=== PATIENT | female | born 1960 | race Caucasian/White ===

== ENCOUNTER 2019-07-21 08:56 | Day surgery (SDC) | payer OTHER ==
[~2019-07-21] VITALS: Ht 160 cm; Wt 87.1 kg
[2019-07-21] MEDS ORDERED: fentaNYL 0.05 MG/ML VIAL ONE (09:50)
[2019-07-21] MEDS ORDERED: LIDOCAINE 2% 100 MG/5 ML UJET TP ONE (09:50)
== END 2019-07-21 12:05 | disposition home or self-care (01) ==
LOC: MDS 08:56 → MMU 09:05 → MDS 12:05
PROVIDERS: ATTEND Internal Medicine Gastroenterology
DX: K52.9 Noninfective gastroenteritis and colitis, unspecified (principal); D12.0 Benign neoplasm of cecum; I10 Essential (primary) hypertension; E78.00 Pure hypercholesterolemia, unspecified; Z79.82 Long term (current) use of aspirin; Z79.899 Other long term (current) drug therapy; Z98.890 Other specified postprocedural states
CPT/HCPCS: 45380; 45385; 88305; J3010; J7030

== ENCOUNTER 2022-12-21 11:46 | Day surgery (SDC) | payer OTHER ==
[~2022-12-21] VITALS: Ht 160 cm; Wt 81.6 kg
[2022-12-21 12:22] LABS: BASOPHILS % (AUTO) 0.6 % (0.0-2.0); EOSINOPHILS # (AUTO) 0.1 K/uL (0-0.4); EOSINOPHILS % (AUTO) 1.3 % (0.0-4.0); HEMATOCRIT 37.6 % (36-48); HEMOGLOBIN 12.7 g/dL (12.0-16.0); LYMPHOCYTES # (AUTO) 2.3 K/uL (2.5-16.5); MEAN CORPUSCULAR HEMOGLOBIN 31 pg (27-31); MEAN CORPUSCULAR HGB CONC 34 g/dL (33-37); MEAN CORPUSCULAR VOLUME 91.3 fL (80-94); MONOCYTES # (AUTO) 0.8 K/uL (0.8-1.0); MONOCYTES % (AUTO) 10.7 % (1.7-9.3); NEUTROPHILS # (AUTO) 4.4 K/uL (1.8-7.7); NEUTROPHILS % (AUTO) 57.4 % (42.2-75.2); PLATELET COUNT (AUTO) 166 K/uL (140-450); RED BLOOD CELL COUNT(AUTO) 4.12 MIL/uL (4.20-5.40); RED CELL DISTRIBUTION WIDTH 14.1 % (11.6-13.7); WHITE BLOOD COUNT (AUTO) 7.7 K/uL (4.8-10.8)
[2022-12-21 12:42] LABS: INR 1.14 (0.8-1.2); PARTIAL THROMBOPLASTIN TIME 28.5 secs (22-35.6); PROTHROMBIN TIME 11.9 secs (10.8-13.4)
[2022-12-21] MEDS ORDERED: LIDOCAINE 1% 500 MG/50 ML VIAL ONE (14:06)
[2022-12-21] MEDS ORDERED: fentaNYL citrate 0.05 MG/ML VIAL ONE (14:16)
[2022-12-21] MEDS ORDERED: fentaNYL citrate 0.05 MG/ML VIAL IVP ONE (15:00)
== END 2022-12-21 15:30 | disposition home or self-care (01) ==
LOC: MDS 11:46 → MMU 11:48 → MDS 15:30
PROVIDERS: ATTEND Internal Medicine Gastroenterology
DX: R74.01 Elevation of levels of liver transaminase levels (principal); K76.0 Fatty (change of) liver, not elsewhere classified; K21.9 Gastro-esophageal reflux disease without esophagitis; I10 Essential (primary) hypertension; E66.09 Other obesity due to excess calories; K59.00 Constipation, unspecified; Z80.0 Family history of malignant neoplasm of digestive organs; Z90.49 Acquired absence of other specified parts of digestive tract; Z90.710 Acquired absence of both cervix and uterus; Z86.010 Personal history of colon polyps; Z68.34 Body mass index [BMI] 34.0-34.9, adult; Z79.899 Other long term (current) drug therapy
CPT/HCPCS: 36415; 47000; 76942; 85025; 85610; 85730; J2001; J3010; Q0092

== ENCOUNTER 2023-02-05 08:15 | Day surgery (SDC) | payer OTHER ==
[~2023-02-05] VITALS: Ht 160 cm; Wt 80.7 kg
[2023-02-05] MEDS ORDERED: fentaNYL citrate 0.05 MG/ML VIAL ONE (11:10)
[2023-02-05] MEDS ORDERED: MIDAZOLAM 2 MG/2 ML VIAL ONE (11:10)
[2023-02-05] MEDS ORDERED: MIDAZOLAM 2 MG/2 ML VIAL IVP ONE (13:40)
[2023-02-05] MEDS ORDERED: fentaNYL citrate 0.05 MG/ML VIAL IVP ONE (13:40)
[2023-02-05] MEDS ORDERED: fentaNYL citrate 0.05 MG/ML VIAL IVP SCH (14:30)
[2023-02-05] MEDS ORDERED: MIDAZOLAM 2 MG/2 ML VIAL IVP SCH (14:30)
== END 2023-02-05 13:00 | disposition home or self-care (01) ==
LOC: MMU 08:15 → MDS 08:15
PROVIDERS: ATTEND Internal Medicine Gastroenterology
DX: K75.4 Autoimmune hepatitis (principal); K31.89 Other diseases of stomach and duodenum; K76.6 Portal hypertension; Z79.899 Other long term (current) drug therapy
CPT/HCPCS: 43235; J2250; J3010